=== PATIENT | female | born 1965 | race African-American/Black ===

== ENCOUNTER 2017-04-19 15:37 | Emergency (ER) | payer BC ==
[~2017-04-19] VITALS: Ht 188 cm; Wt 86.0 kg
[2017-04-19] MEDS ORDERED: METHOCARBAMOL 500MG TABLET PO ONE (17:15)
[2017-04-19] MEDS ORDERED: KETOROLAC 60MG/2ML VIAL IM ONE (17:15)
[2017-04-19 17:24] LABS: CLARITY URINE CLEAR (CLEAR); COLOR URINE YELLOW (YELLOW); GLUCOSE URINE NEGATIVE (NEGATIVE); KETONES URINE NEGATIVE (NEGATIVE); LEUKOCYTE ESTERASE URINE 1+ (NEGATIVE); NITRITE URINE NEGATIVE (NEGATIVE); OCCULT BLOOD URINE 2+ (NEGATIVE); PH URINE 5.5 (4.5-8.0); PROTEIN URINE NEGATIVE (NEGATIVE); SPECIFIC GRAVITY URINE 1.017 (1.005-1.030); UROBILINOGEN URINE 0.2 E.U./dL (0.2-1.0)
[2017-04-19 18:53] VITALS: BP 158/96
== END 2017-04-19 18:54 | disposition home or self-care (01) ==
LOC: ER 15:51
DX: S39.012A Strain of muscle, fascia and tendon of lower back, initial encounter (principal); X58.XXXA Exposure to other specified factors, initial encounter; Y93.89 Activity, other specified; Y92.89 Other specified places as the place of occurrence of the external cause; Y99.8 Other external cause status
CPT/HCPCS: 81001; 96372; 99283; J1885; Z7610

== ENCOUNTER 2019-02-28 17:08 | Emergency (ER) | payer BC ==
[~2019-02-28] VITALS: Ht 188 cm; Wt 89.0 kg
[2019-02-28 20:10] VITALS: BP 138/69
== END 2019-02-28 20:16 | disposition left against medical advice (07) ==
LOC: ER 17:08
DX: Z53.21 Procedure and treatment not carried out due to patient leaving prior to being seen by health care provider (principal); Z78.0 Asymptomatic menopausal state; N17.0 Acute kidney failure with tubular necrosis; K59.00 Constipation, unspecified

== ENCOUNTER 2019-03-02 13:28 | Emergency (ER) | payer BC ==
[~2019-03-02] VITALS: Ht 188 cm; Wt 87.0 kg
[2019-03-02] MEDS ORDERED: SODIUM CHLORIDE 0.9% 1,000 ML IV ONE (13:50)
[2019-03-02 14:41] LABS: BASOPHILS % 0.4 % (0.0-2.0); EOSINOPHILS % 1.2 % (0.0-5.0); HEMATOCRIT. 38.7 % (36.0-48.0); HEMOGLOBIN. 13.1 g/dL (12.0-16.0); LYMPHOCYTES % 46.1 % (20.0-50.0); MEAN CORPUSCULAR HEMOGLOBIN 32.8 pg (28.0-32.0); MEAN CORPUSCULAR VOLUME 96.9 fL (81.0-99.0); MEAN PLATELET VOLUME 9.3 fl (7.4-10.4); MONOCYTES % 7.9 % (2.0-8.0); NEUTROPHILS % 44.4 % (40.0-76.0); PLATELET 130 x1000/uL (130-400); RED CELL DISTRIBUTION WIDTH 13.6 % (11.6-14.6)
[2019-03-02 14:48] LABS: CHLORIDE 104 mEq/L (98-107)
[2019-03-02 15:34] LABS: CLARITY URINE CLEAR (CLEAR); COLOR URINE DARK YELLOW (YELLOW); KETONES URINE TRACE (NEGATIVE); LEUKOCYTE ESTERASE URINE TRACE (NEGATIVE); NITRITE URINE NEGATIVE (NEGATIVE); OCCULT BLOOD URINE TRACE (NEGATIVE); PROTEIN URINE 1+ (NEGATIVE); SPECIFIC GRAVITY URINE 1.035 (1.005-1.030)
[2019-03-02] MEDS ORDERED: KETOROLAC 15MG/ML VIAL IV ONE (16:00)
[2019-03-02] MEDS ORDERED: DIPHENHYDRAMINE 50MG/ML VIAL IV ONE (16:00)
[2019-03-02] MEDS ORDERED: METOCLOPRAMIDE HCL 10MG/2ML VIAL IV ONE (16:00)
[2019-03-02 16:25] VITALS: BP 150/78
== END 2019-03-02 16:31 | disposition home or self-care (01) ==
LOC: ER 13:28
DX: N95.8 Other specified menopausal and perimenopausal disorders (principal); R74.0 Nonspecific elevation of levels of transaminase and lactic acid dehydrogenase [LDH]; R51 Headache
CPT/HCPCS: 36415; 71045; 80053; 81003; 83880; 84484; 85025; 93005; 96374; 96375; 99284; J1200; J1885; J2765; J7030

== ENCOUNTER 2020-01-21 13:24 | Emergency (ER) | payer BC, OTHER ==
[~2020-01-21] VITALS: Ht 188 cm; Wt 86.0 kg
[2020-01-21 13:34] VITALS: BP 174/67
[2020-01-21 14:56] LABS: BASOPHILS % 0.6 % (0.0-2.0); EOSINOPHILS % 2.4 % (0.0-5.0); HEMATOCRIT. 40.7 % (36.0-48.0); HEMOGLOBIN. 14.1 g/dL (12.0-16.0); LYMPHOCYTES % 47.5 % (20.0-50.0); MEAN CORPUSCULAR HEMOGLOBIN 33.3 pg (28.0-32.0); MEAN CORPUSCULAR VOLUME 96.1 fL (81.0-99.0); MEAN PLATELET VOLUME 8.6 fl (7.4-10.4); MONOCYTES % 8.3 % (2.0-8.0); NEUTROPHILS % 41.2 % (40.0-76.0); PLATELET 194 x1000/uL (130-400); RED BLOOD CELL COUNT 4.24 mill/uL (4.2-5.4); RED CELL DISTRIBUTION WIDTH 13.1 % (11.6-14.6)
[2020-01-21 15:06] LABS: CHLORIDE 106 mEq/L (98-107)
== END 2020-01-21 18:30 | disposition left against medical advice (07) ==
LOC: ER 13:24
DX: R07.9 Chest pain, unspecified (principal)
CPT/HCPCS: 36415; 71045; 80053; 81025; 83880; 84484; 85025; 99284